=== PATIENT | male | born 1970 | race Caucasian/White ===

== ENCOUNTER 2024-02-22 02:12 | Inpatient (IN) | payer BC ==
[~2024-02-22] VITALS: Ht 182.9 cm; Wt 204.1 kg
[2024-02-22 02:34] VITALS: BP 125/48; PULSE 86; RESP 16; TEMP 98.4; O2SAT 94
[2024-02-22] MEDS ORDERED: cefTRIAXone 1,000 MG VIAL ONE (02:53)
[2024-02-22 03:03] LABS: ANION GAP 8.4 (8-16); CALCIUM 8.8 mg/dL (8.5-10.1); CARBON DIOXIDE 30.7 mmol/L (21-32); CREATININE 1.4 mg/dL (0.6-1.3); POTASSIUM 4.1 mmol/L (3.5-5.1); WHITE BLOOD COUNT (AUTO) 8.2 K/uL (4.8-10.8)
[2024-02-22 03:04] LABS: HEMATOCRIT 35.7 % (36-52); HEMOGLOBIN 11.8 g/dL (12.0-18.0); MEAN CORPUSCULAR HEMOGLOBIN 30 pg (27-31); MEAN CORPUSCULAR HGB CONC 33 g/dL (33-37); MEAN CORPUSCULAR VOLUME 89.3 fL (80-94); PLATELET COUNT (AUTO) 214 K/uL (140-450); RED CELL DISTRIBUTION WIDTH 14.4 % (11.6-13.7)
[2024-02-22 03:05] LABS: BASOPHILS % (AUTO) 0.4 % (0.0-2.0); EOSINOPHILS # (AUTO) 0.2 K/uL (0-0.4); LYMPHOCYTES # (AUTO) 0.9 K/uL (2.0-11.5); LYMPHOCYTES % (AUTO) 11.2 % (20.5-51.1); MONOCYTES # (AUTO) 0.5 K/uL (0.8-1.0); MONOCYTES % (AUTO) 5.8 % (1.7-9.3); NEUTROPHILS # (AUTO) 6.6 K/uL (1.8-7.7); NEUTROPHILS % (AUTO) 80.6 % (42.2-75.2)
[2024-02-22] MEDS: cefTRIAXone 1,000 MG in DEXT 5% MINI-BAG PLUS 50 ML IV ONE (03:11)
[2024-02-22 03:41] LABS: LACTIC ACID 2.1 mmol/L (0.4-2.0)
[2024-02-22] MEDS ORDERED: MORPHINE SULFATE 4 MG/ML SYR IVP ONE (04:15)
[2024-02-22 05:05] LABS: BILIRUBIN,URINE NEGATIVE (NEGATIVE); BLOOD, URINE NEGATIVE (NEGATIVE); COLOR,URINE YELLOW (YELLOW); LEUKOCYTE ESTERASE ,URINE NEGATIVE (NEGATIVE); NITRITE, URINE NEGATIVE (NEGATIVE); PROTEIN,URINE TRACE (NEGATIVE); UGLUCOSE 3+ (NEGATIVE)
[2024-02-22 05:08] LABS: APPEARANCE,URINE SLIGHTLY HAZY (CLEAR)
[2024-02-22 05:09] LABS: BACTERIA,URINE 1+ /HPF (None Seen); MUCUS,URINE None Seen /LPF (None Seen); RBC,URINE 0 /HPF (0-5); SQUAMOUS EPITHELIAL CELL,UR 0-3 (FEW) /LPF (0-3 (FEW)); WBC,URINE 0-5 /HPF (0-5)
[2024-02-22] MEDS: HYDROcodone/APAP 10/325 MG 1 TAB TAB PO ONE (05:12)
[2024-02-22] MEDS ORDERED: GABA400C PO (05:22)
[2024-02-22] MEDS ORDERED: BUPR-160 PO (05:22)
[2024-02-22] MEDS ORDERED: SEMA2PEN SQ (05:22)
[2024-02-22] MEDS ORDERED: FURO-570 PO (05:22)
[2024-02-22] MEDS ORDERED: ASPI-1822 PO (05:22)
[2024-02-22] MEDS ORDERED: METF-350 PO (05:22)
[2024-02-22] MEDS ORDERED: INSU100S22 SUBQ (05:22)
[2024-02-22] MEDS ORDERED: FINE20TA PO (05:22)
[2024-02-22] MEDS ORDERED: HUM SUBQ (05:22)
[2024-02-22] MEDS ORDERED: EMPA25TA PO (05:22)
[2024-02-22] MEDS ORDERED: GLIP10TE1 PO (05:22)
[2024-02-22] MEDS ORDERED: HYDR-5080 PO (05:22)
[2024-02-22] MEDS ORDERED: PIOG45TA10 PO (05:22)
[2024-02-22] MEDS ORDERED: DULO20EC PO (05:22)
[2024-02-22] MEDS ORDERED: MAGNESIUM OXIDE 400 MG TAB PO PRN (06:00)
[2024-02-22] MEDS ORDERED: KCL 20 MEQ IN 100 mL PREMIX 200 ML IV PRN (06:00)
[2024-02-22] MEDS ORDERED: ONDANSETRON 4 MG/2 ML VIAL IVP PRN (06:00)
[2024-02-22] MEDS ORDERED: POTASSIUM CHLORIDE 10 MEQ TABER PO PRN (06:00)
[2024-02-22] MEDS ORDERED: VANCOMYCIN PER PHARMACY MC PRN (06:00)
[2024-02-22] MEDS ORDERED: VANCOMYCIN 1,000 MG VIAL ONE (06:58)
[2024-02-22] MEDS: NACL 0.9% 1,000 ML IV SCH (07:08)
[2024-02-22] MEDS: VANCOMYCIN 1GM/DEXT 5% PREMIX 200 ML IV ONE (07:13)
[2024-02-22] MEDS: DOCUSATE SODIUM 100 MG GELCAP PO SCH (09:00)
[2024-02-22 12:00] VITALS: BP 123/56; PULSE 68; RESP 20; TEMP 97.4; O2SAT 99
[2024-02-22] MEDS ORDERED: DEXTROSE 50% 50 ML SYR IVP PRN (15:20)
[2024-02-22 15:22] VITALS: PULSE 68
[2024-02-22 16:00] VITALS: BP 135/68; PULSE 65; RESP 19; TEMP 98.1; O2SAT 98
[2024-02-22] MEDS: BLOOD GLUCOSE MONITORING 1 DEV DEV FS SCH (16:49)
[2024-02-22] MEDS: GABAPENTIN 100 MG CAP PO SCH (16:49)
[2024-02-22] MEDS: INSULIN LISPRO SLIDING SCALE 100 UNITS/ML VIAL SUBQ PRN (16:55)
[2024-02-22] MEDS: VANCOMYCIN 1,000 MG VIAL ONE (18:54)
[2024-02-22] MEDS: VANCOMYCIN 1,000 MG in DEXTROSE 5% 250 ML IV SCH (18:56)
[2024-02-22 20:00] VITALS: BP 140/54; PULSE 83; RESP 22; TEMP 97; O2SAT 95; O2SAT 97
[2024-02-22] MEDS: INSULIN LANTUS 100 UNITS/ML 10 ML VIAL SUBQ SCH (21:04)
[2024-02-23] MEDS: ACETAMINOPHEN 325 MG TAB PO PRN (02:03)
[2024-02-23] MEDS: cefTRIAXone 1,000 MG VIAL ONE (03:36)
[2024-02-23] MEDS: HYDROcodone/APAP 10/325 MG 1 TAB TAB PO PRN (03:49)
[2024-02-23] MEDS: VANCOMYCIN 1,000 MG VIAL ONE (06:23)
[2024-02-23 07:15] LABS: BASOPHILS % (AUTO) 0.4 % (0.0-2.0); EOSINOPHILS # (AUTO) 0.2 K/uL (0-0.4); EOSINOPHILS % (AUTO) 3.3 % (0.0-4.0); HEMATOCRIT 33.4 % (36-52); HEMOGLOBIN 11.1 g/dL (12.0-18.0); LYMPHOCYTES # (AUTO) 1.2 K/uL (2.0-11.5); LYMPHOCYTES % (AUTO) 17.2 % (20.5-51.1); MEAN CORPUSCULAR HEMOGLOBIN 30 pg (27-31); MEAN CORPUSCULAR HGB CONC 33 g/dL (33-37); MEAN CORPUSCULAR VOLUME 90.4 fL (80-94); MONOCYTES # (AUTO) 0.4 K/uL (0.8-1.0); MONOCYTES % (AUTO) 5.8 % (1.7-9.3); NEUTROPHILS # (AUTO) 5.3 K/uL (1.8-7.7); NEUTROPHILS % (AUTO) 73.3 % (42.2-75.2); PLATELET COUNT (AUTO) 188 K/uL (140-450); RED CELL DISTRIBUTION WIDTH 14.1 % (11.6-13.7); WHITE BLOOD COUNT (AUTO) 7.3 K/uL (4.8-10.8)
[2024-02-23 07:31] LABS: ANION GAP 8.3 (8-16); CALCIUM 8.5 mg/dL (8.5-10.1); CARBON DIOXIDE 29.2 mmol/L (21-32); CREATININE 1.1 mg/dL (0.6-1.3); POTASSIUM 3.5 mmol/L (3.5-5.1)
[2024-02-23 07:48] VITALS: PULSE 78; PULSE 83; RESP 20; O2SAT 99
[2024-02-23 08:00] VITALS: BP 130/58; PULSE 73; RESP 20; TEMP 92; O2SAT 95
[2024-02-23] MEDS: PIOGLITAZONE 15 MG TAB PO SCH (09:00)
[2024-02-23] MEDS: DULoxetine 30 MG CAPDR PO SCH (09:17)
[2024-02-23] MEDS: ECOTRIN 81 MG TABEC PO SCH (09:17)
[2024-02-23] MEDS: buPROPion 150 MG TABER PO SCH (09:17)
[2024-02-23] MEDS: FUROSEMIDE 40 MG TAB PO SCH (09:18)
[2024-02-23] MEDS ORDERED: NON ADHERENT DRESSING TP PRN (13:25)
[2024-02-23 16:00] VITALS: BP 113/52; PULSE 78; RESP 20; TEMP 98; O2SAT 95
[2024-02-23 20:00] VITALS: BP 133/59; PULSE 76; RESP 18; TEMP 96.8; O2SAT 95
[2024-02-23] MEDS: LOPERAMIDE 2 MG CAP PO PRN (22:40)
[2024-02-24] MEDS: LORazepam 0.5 MG TAB PO PRN (00:56)
[2024-02-24] MEDS: VANCOMYCIN 1,000 MG in DEXTROSE 5% 250 ML IV SCH (01:22)
[2024-02-24 04:00] VITALS: BP 125/50; PULSE 69; RESP 18; TEMP 97.3; O2SAT 96
[2024-02-24 07:29] LABS: ANION GAP 10.4 (8-16); CALCIUM 8.3 mg/dL (8.5-10.1); CARBON DIOXIDE 27.7 mmol/L (21-32); CREATININE 1.1 mg/dL (0.6-1.3); POTASSIUM 3.1 mmol/L (3.5-5.1)
[2024-02-24 07:35] VITALS: PULSE 83
[2024-02-24 07:36] LABS: BASOPHILS % (AUTO) 0.4 % (0.0-2.0); EOSINOPHILS # (AUTO) 0.2 K/uL (0-0.4); EOSINOPHILS % (AUTO) 4.1 % (0.0-4.0); HEMATOCRIT 33.9 % (36-52); HEMOGLOBIN 11.3 g/dL (12.0-18.0); LYMPHOCYTES # (AUTO) 1.2 K/uL (2.0-11.5); LYMPHOCYTES % (AUTO) 20.5 % (20.5-51.1); MEAN CORPUSCULAR HEMOGLOBIN 30 pg (27-31); MEAN CORPUSCULAR HGB CONC 33 g/dL (33-37); MEAN CORPUSCULAR VOLUME 88.7 fL (80-94); MONOCYTES # (AUTO) 0.4 K/uL (0.8-1.0); MONOCYTES % (AUTO) 6.2 % (1.7-9.3); NEUTROPHILS # (AUTO) 4.2 K/uL (1.8-7.7); NEUTROPHILS % (AUTO) 68.8 % (42.2-75.2); PLATELET COUNT (AUTO) 204 K/uL (140-450); RED BLOOD CELL COUNT(AUTO) 3.82 MIL/uL (4.20-6.10); WHITE BLOOD COUNT (AUTO) 6.1 K/uL (4.8-10.8)
[2024-02-24 08:00] VITALS: PULSE 78; RESP 20; O2SAT 99
[2024-02-24] MEDS ORDERED: AMOX1TAB8 PO (12:50)
[2024-02-24] MEDS: NON ADHERENT DRESSING TP SCH (13:00)
[2024-02-24 16:00] VITALS: BP 130/58; PULSE 73; RESP 20; TEMP 92; O2SAT 95
[2024-02-24 20:00] VITALS: BP 129/58; PULSE 65; RESP 18; TEMP 98.3; O2SAT 95
[2024-02-25 04:00] VITALS: BP 121/37; PULSE 61; RESP 17; TEMP 98; O2SAT 92
[2024-02-25 07:28] LABS: BASOPHILS % (AUTO) 0.6 % (0.0-2.0); EOSINOPHILS # (AUTO) 0.2 K/uL (0-0.4); HEMATOCRIT 33.9 % (36-52); HEMOGLOBIN 11.2 g/dL (12.0-18.0); LYMPHOCYTES # (AUTO) 1.2 K/uL (2.0-11.5); MEAN CORPUSCULAR HEMOGLOBIN 29 pg (27-31); MEAN CORPUSCULAR HGB CONC 33 g/dL (33-37); MONOCYTES # (AUTO) 0.4 K/uL (0.8-1.0); MONOCYTES % (AUTO) 6.2 % (1.7-9.3); NEUTROPHILS # (AUTO) 4.2 K/uL (1.8-7.7); NEUTROPHILS % (AUTO) 69.2 % (42.2-75.2); PLATELET COUNT (AUTO) 222 K/uL (140-450); RED BLOOD CELL COUNT(AUTO) 3.85 MIL/uL (4.20-6.10)
[2024-02-25 07:33] LABS: ANION GAP 9.7 (8-16); CALCIUM 8.5 mg/dL (8.5-10.1); CARBON DIOXIDE 28.5 mmol/L (21-32); POTASSIUM 3.2 mmol/L (3.5-5.1)
[2024-02-25 08:00] VITALS: BP 112/46; PULSE 68; RESP 18; TEMP 97.5; O2SAT 92; O2SAT 95
[2024-02-25 16:00] VITALS: BP 128/77; PULSE 84; RESP 18; TEMP 98; O2SAT 100
== END 2024-02-25 18:40 | disposition home or self-care (01) | DRG 602 ==
LOC: MED 02:12 → MTU 06:04 → OBSVTOIN 06:05 → MTU 10:56
PROVIDERS: ADMIT Internal Medicine; ATTEND Internal Medicine
DX: L03.116 Cellulitis of left lower limb (principal); N17.0 Acute kidney failure with tubular necrosis; Z68.44 Body mass index [BMI] 60.0-69.9, adult; E66.01 Morbid (severe) obesity due to excess calories; I10 Essential (primary) hypertension; E11.9 Type 2 diabetes mellitus without complications; Z79.899 Other long term (current) drug therapy; Z88.8 Allergy status to other drugs, medicaments and biological substances; Z88.5 Allergy status to narcotic agent; Z79.84 Long term (current) use of oral hypoglycemic drugs
CPT/HCPCS: 36415; 71045; 73610; 73660; 80048; 80202; 81001; 82948; 83605; 83880; 84484; 85025; 87040; 87070; 87075; 87081; 87086; 87186; 87205; 93005; 96365; 96367; 99285; J0696; J1644; J1815; J3370; J7060; Q0092